=== PATIENT | male | born 1955 | race Two or more races ===

== ENCOUNTER 2021-11-13 08:20 | Outpatient (CLI) | payer OTHER | END 2021-11-13 08:34 | disposition home or self-care (01) | LOC: TOM 08:20 | PROVIDERS: ATTEND Otolaryngology | DX: R12 Heartburn (principal); J94.1 Fibrothorax ==

== ENCOUNTER 2021-11-13 10:46 | Outpatient (CLI) | payer OTHER | END 2021-11-13 10:47 | disposition home or self-care (01) | LOC: LAB 10:46 | PROVIDERS: ATTEND Internal Medicine Sports Medicine | DX: D64.9 Anemia, unspecified (principal); E11.9 Type 2 diabetes mellitus without complications; E78.2 Mixed hyperlipidemia; I10 Essential (primary) hypertension; E03.8 Other specified hypothyroidism; R97.20 Elevated prostate specific antigen [PSA] ==

== ENCOUNTER 2022-04-23 07:14 | Outpatient (CLI) | payer OTHER | END 2022-04-23 07:19 | disposition home or self-care (01) | LOC: LAB 07:14 | PROVIDERS: ATTEND Internal Medicine Sports Medicine | DX: D64.9 Anemia, unspecified (principal); E11.9 Type 2 diabetes mellitus without complications; E78.2 Mixed hyperlipidemia; E03.8 Other specified hypothyroidism; I10 Essential (primary) hypertension; E55.9 Vitamin D deficiency, unspecified; R97.20 Elevated prostate specific antigen [PSA] ==

== ENCOUNTER → 2022-08-27 09:20 | Outpatient (CLI) | payer OTHER | END | disposition home or self-care (01) | LOC: LAB 09:20 | PROVIDERS: ATTEND Urology | DX: Z01.811 Encounter for preprocedural respiratory examination (principal); D64.89 Other specified anemias; N39.0 Urinary tract infection, site not specified; E11.65 Type 2 diabetes mellitus with hyperglycemia; E78.5 Hyperlipidemia, unspecified; C61 Malignant neoplasm of prostate; E03.0 Congenital hypothyroidism with diffuse goiter; D68.9 Coagulation defect, unspecified ==

== ENCOUNTER → 2022-09-03 08:43 | Outpatient (CLI) | payer OTHER | END | disposition home or self-care (01) | LOC: LAB 08:43 | PROVIDERS: ATTEND Urology | DX: Z03.818 Encounter for observation for suspected exposure to other biological agents ruled out (principal); B97.29 Other coronavirus as the cause of diseases classified elsewhere ==

== ENCOUNTER 2023-08-19 08:55 | Outpatient (CLI) | payer OTHER ==
[2023-08-19 09:58] LABS: PH,URINE 6.5 (5.0-8.0); URINE APPEARANCE Clear; URINE BILIRRUBIN Negative (NEGATIVE); URINE BLOOD Negative; URINE COLOR Yellow; URINE GLUCOSE Negative (NEGATIVE); URINE LEUKOCYTE Negative; URINE NITRATE Negative; URINE PROTEIN Negative (NEGATIVE); URINE UROBILINOGEN 0.2 E.U./dl
[2023-08-19 09:59] LABS: URINE RBC 17.1 uL (0.0-20.8); URINE WBC 5.6 uL (0.0-23.2)
[2023-08-19 10:05] LABS: URINE BACTERIA 2.5 uL (0.0-1933); URINE EPITHELIAL CELLS 0.3 uL (0.0-38.8)
[2023-08-19 10:15] LABS: HEMATOCRIT 40.4 % (39.0-48.0); HEMOGLOBIN 13.9 g/dL (13-16.00); MEAN CELL VOLUME 92.5 fL (80.0-100.00); MEAN CORPUSCULAR HEMOGLOBIN 31.8 pg (27.00-32.0); MEAN CORPUSCULAR HGB CONC 34.4 g/dl (32.0-36.0); PLATELET COUNT 220 K/uL (150-450); RED BLOOD COUNT 4.37 M/uL (4.00-6.00); RED CELL DISTRIBUTION WIDTH 13.6 % (11.5-14.5)
[2023-08-19 10:48] LABS: ALBUMIN 3.9 gm/dL (3.4-5.0); BILIRUBIN TOTAL 0.4 mg/dL (0.3-1.2); CALCIUM 9.1 mg/dL (8.5-10.1); CHOL HDL RATIO 4.9 (0-5.0); CREATININE SERUM 0.87 mg/dL (0.70-1.30); GFR 87.79; GLOBULINA 3.4 G/DL (2.4-3.5); POTASSIUM 4.9 mEq/L (3.5-5.1); T4 FREE 0.98 NG/ML (0.76-1.46); TOTAL PROTEIN 7.3 gm/dL (6.4-8.2); TSH 1.23 uIU/mL (0.358-3.74)
[2023-08-19 10:58] LABS: PROSTATIC SPECIFIC ANTIGEN 11.5 NG/ML (0.010-4.00)
== END 2023-08-19 08:56 | disposition home or self-care (01) ==
LOC: LAB 08:55
PROVIDERS: ATTEND Urology
DX: D64.9 Anemia, unspecified (principal); E11.9 Type 2 diabetes mellitus without complications; E78.2 Mixed hyperlipidemia; I10 Essential (primary) hypertension; E03.8 Other specified hypothyroidism; R97.20 Elevated prostate specific antigen [PSA]; N39.0 Urinary tract infection, site not specified; D64.89 Other specified anemias; E11.65 Type 2 diabetes mellitus with hyperglycemia; E78.5 Hyperlipidemia, unspecified; C61 Malignant neoplasm of prostate; E03.0 Congenital hypothyroidism with diffuse goiter

== ENCOUNTER 2023-08-26 13:03 | Outpatient (CLI) | payer OTHER | END 2023-08-26 13:04 | disposition home or self-care (01) | LOC: NUCLEAR 13:03 | PROVIDERS: ATTEND Internal Medicine Sports Medicine | DX: M81.0 Age-related osteoporosis without current pathological fracture (principal) ==

== ENCOUNTER 2023-08-27 08:13 | Outpatient (CLI) | payer OTHER | END 2023-08-27 08:14 | disposition home or self-care (01) | LOC: NUCLEAR 08:13 | PROVIDERS: ATTEND Internal Medicine Sports Medicine | DX: M19.90 Unspecified osteoarthritis, unspecified site (principal); R10.2 Pelvic and perineal pain | CPT/HCPCS: 78315; A9503 ==

== ENCOUNTER 2024-04-27 06:34 | Outpatient (CLI) | payer OTHER ==
[2024-04-29 13:06] LABS: % FREE PSA 22.9 % (.); free psa 2.06 ng/mL
== END 2024-04-27 06:35 | disposition home or self-care (01) ==
LOC: LAB 06:34
PROVIDERS: ATTEND Urology
DX: R97.20 Elevated prostate specific antigen [PSA] (principal)

== ENCOUNTER 2024-04-27 07:10 | Outpatient (CLI) | payer OTHER | END 2024-04-27 07:13 | disposition home or self-care (01) | LOC: SONOGRAMA 07:10 | PROVIDERS: ATTEND Urology | DX: N40.1 Benign prostatic hyperplasia with lower urinary tract symptoms (principal) ==

== ENCOUNTER 2024-08-17 08:35 | Outpatient (CLI) | payer OTHER ==
[2024-08-17 10:39] LABS: HEMATOCRIT 38.5 % (39.0-48.0); HEMOGLOBIN 13.3 g/dL (13-16.00); MEAN CELL VOLUME 92.7 fL (80.0-100.00); MEAN CORPUSCULAR HEMOGLOBIN 32.1 pg (27.00-32.0); MEAN CORPUSCULAR HGB CONC 34.7 g/dl (32.0-36.0); PLATELET COUNT 172 K/uL (150-450); RED BLOOD COUNT 4.15 M/uL (4.00-6.00); RED CELL DISTRIBUTION WIDTH 13.7 % (11.5-14.5)
[2024-08-17 11:44] LABS: ALBUMIN 3.6 gm/dL (3.4-5.0); BILIRUBIN TOTAL 0.54 mg/dL (0.3-1.2); CALCIUM 8.9 mg/dL (8.5-10.1); CHOL HDL RATIO 3.9 (0-5.0); CREATININE SERUM 0.68 mg/dL (0.70-1.30); GFR 116.31; GLOBULINA 3.4 G/DL (2.4-3.5); POTASSIUM 4.81 mEq/L (3.5-5.1); T4 TOTAL 7.06 UG/DL (4.5-12.1); TSH 1.03 uIU/mL (0.358-3.74)
== END 2024-08-17 08:36 | disposition home or self-care (01) ==
LOC: LAB 08:35
PROVIDERS: ATTEND Urology
DX: Z00.00 Encounter for general adult medical examination without abnormal findings (principal)

== ENCOUNTER → 2025-03-22 06:23 | Outpatient (CLI) | payer OTHER ==
[2025-03-22 07:23] LABS: URINE APPEARANCE Clear; URINE BILIRRUBIN Negative (NEGATIVE); URINE BLOOD Negative; URINE COLOR Yellow; URINE GLUCOSE Negative (NEGATIVE); URINE KETONE Negative (NEGATIVE); URINE LEUKOCYTE Negative; URINE NITRATE Negative; URINE PROTEIN Negative (NEGATIVE); URINE UROBILINOGEN 0.2 E.U./dl
[2025-03-22 07:27] LABS: URINE RBC 8.3 uL (0.0-20.8); URINE WBC 3.0 uL (0.0-23.2)
[2025-03-22 07:36] LABS: URINE BACTERIA 2.3 uL (0.0-1933); URINE CAST 0.00 uL (0.0-1.40); URINE EPITHELIAL CELLS 0.7 uL (0.0-38.8)
== END | disposition home or self-care (01) ==
LOC: LAB 06:23
PROVIDERS: ATTEND Urology
DX: N39.0 Urinary tract infection, site not specified (principal); N40.1 Benign prostatic hyperplasia with lower urinary tract symptoms; R97.20 Elevated prostate specific antigen [PSA]

== ENCOUNTER 2025-03-24 12:50 | Outpatient (CLI) | payer OTHER | END 2025-03-24 12:57 | disposition home or self-care (01) | LOC: MRI 12:50 | PROVIDERS: ATTEND Psychiatry & Neurology Clinical Neurophysiology | DX: G31.84 Mild cognitive impairment of uncertain or unknown etiology (principal) | CPT/HCPCS: 70551 ==